=== PATIENT | male | born 1960 | race Caucasian/White ===

== ENCOUNTER 2020-08-25 15:18 | Emergency (ER) | payer OTHER ==
--- NOTE | 2020-08-25 15:31 | EDM.PDOC ---
ED HPI GENERAL MEDICAL PROBLEM - General Chief Complaint: Cardiovascular Problem Stated Complaint: CHEST PAIN X2 Time Seen by Provider: 08/25/20 15:30 - History of Present Illness INITIAL COMMENTS - FREE TEXT/NARRATIVE: 59-year-old male presents the emergency room with chest pain. This pain started 2 days ago. It is worse at night and he describes it as a burning pain adjacent to his scapula on the left side. Today he noticed the pain was extending towards the front of his chest and went to under his nipple. He describes this as a sharp stabbing pain. He has no prior history of coronary artery disease. However he is taking a statin because he has a strong family history of heart attacks and stroke. His father had and ultimately succumbed to heart disease at age 75 he has had some brothers that have had strokes. Patient is currently treated for hypothyroidism and is taking the atorvastatin 10 mg a day more for preventative measures not treated for hypertension no history or suggestion of diabetes in the past. The patient does smoke very lightly may be a pack a month, he is advised in no uncertain terms to quit. - Related Data Allergies Allergy/AdvReac Type Severity Reaction Status Date / Time No Known Allergies Allergy Verified 08/25/20 15:30 Home Meds: Home Meds Levothyroxine 125 mcg PO DAILY 08/25/20 [History] atorvaSTATin [Lipitor] 10 mg PO DAILY 08/25/20 [History] valACYclovir HCl [valACYclovir] 1,000 mg PO TID #21 tablet 08/25/20 [Rx] ED ROS GENERAL - Review of Systems Review Of Systems: See Below Constitutional: Reports: No Symptoms. Denies: Fever, Chills HEENT: Reports: No Symptoms Respiratory: Reports: No Symptoms Cardiovascular: Reports: Chest Pain. Denies: No Symptoms, Blood Pressure Problem, Dyspnea on Exertion, Edema, Lightheadedness Endocrine: Reports: No Symptoms GI/Abdominal: Reports: No Symptoms. Denies: Abdominal Pain, Anorexia, Constipation, Diarrhea, Nausea, Vomiting : Reports: No Symptoms Musculoskeletal: Reports: Other (Scapular pain on the left side) Skin: Reports: No Symptoms ED EXAM, GENERAL - Physical Exam Exam: See Below Exam Limited By: No Limitations General Appearance: Alert, No Apparent Distress Head: Atraumatic, Normocephalic Neck: Normal Inspection, Supple, Non-Tender, Full Range of Motion Respiratory/Chest: No Respiratory Distress, Lungs Clear, Normal Breath Sounds Cardiovascular: Regular Rate, Rhythm, No Edema, No Murmur GI/Abdominal: Normal Bowel Sounds, Soft, Non-Tender Back Exam: Normal Inspection, Other (Developing some redness along the left medial scapular margin no blistering as of yet). No: CVA Tenderness (L), CVA Tenderness (R) Extremities: Normal Inspection, No Pedal Edema Neurological: Alert, Oriented Lymphatic: No Adenopathy Course - Vital Signs Last Recorded V/S: Last Vital Signs Temp 36.1 C 08/25/20 15:26 Pulse 72 08/25/20 15:26 Resp 16 08/25/20 15:26 BP 159/100 H 08/25/20 15:26 Pulse Ox 95 08/25/20 15:26 - Orders/Labs/Meds Orders: Active Orders 24 hr Category Date Time Status EKG 12 Lead [EKG Documentation Completion] [RC] STAT Care 08/25/20 15:26 Active Sodium Chloride 0.9% [Normal Saline] 100 ml Med 08/25/20 17:45 Active IV ASDIRECTED Sodium Chloride 0.9% [Saline Flush] Med 08/25/20 17:45 Active 10 ml FLUSH ASDIRECTED Medication Orders Sodium Chloride (Normal Saline) 100 mls @ 60 mls/hr IV ASDIRECTED [facility] Last Admin: 08/25/20 17:54 Dose: 60 mls/hr Documented by: AXEL Sodium Chloride (Saline Flush) 10 ml FLUSH ASDIRECTED [facility] Last Admin: 08/25/20 17:54 Dose: 10 ml Documented by: [email or web address] Labs: Laboratory Tests 08/25/20 08/25/20 08/25/20 Range/Units 15:56 15:56 15:56 WBC 8.80 (4.23-9.07) K/mm3 RBC 4.94 (4.63-6.08) M/mm3 Hgb 15.1 (13.7-17.5) gm/dl Hct 45.0 (40.1-51.0) % MCV 91.1 (79.0-92.2) fl MCH 30.6 (25.7-32.2) pg MCHC 33.6 (32.2-35.5) g/dl RDW Std Deviation 47.5 H (35.1-43.9) fL Plt Count 246 (163-337) K/mm3 MPV 9.5 (9.4-12.3) fl Neut % (Auto) 52.9 (34.0-67.9) % Lymph % (Auto) 32.8 (21.8-53.1) % [place] % (Auto) 11.3 (5.3-12.2) % Eos % (Auto) 2.6 (0.8-7.0) Baso % (Auto) 0.2 (0.1-1.2) % Neut # (Auto) 4.65 (1.78-5.38) K/mm3 Lymph # (Auto) 2.89 (1.32-3.57) K/mm3 [place] # (Auto) 0.99 H (0.30-0.82) K/mm3 Eos # (Auto) 0.23 (0.04-0.54) K/mm3 Baso # (Auto) 0.02 (0.01-0.08) K/mm3 D-Dimer, Quantitative 1.25 H (0.19-0.50) mg/L Sodium 141 (136-145) mEq/L Potassium 3.8 (3.5-5.1) mEq/L Chloride 103 (98-107) mEq/L Carbon Dioxide 26 (21-32) mEq/L Anion Gap 15.8 H (5-15) BUN 16 (7-18) mg/dL Creatinine 1.1 (0.7-1.3) mg/dL Est Cr Clr Drug Dosing 81.32 mL/min Estimated GFR (MDRD) > 60 (>60) mL/min BUN/Creatinine Ratio 14.5 (14-18) Glucose 109 H (74-106) mg/dL Calcium 9.0 (8.5-10.1) mg/dL Total Bilirubin 0.9 (0.2-1.0) mg/dL AST 21 (15-37) U/L ALT 40 (16-63) U/L Alkaline Phosphatase 49 (46-116) U/L Troponin I < 0.017 (0.00-0.056) ng/mL Total Protein 7.0 (6.4-8.2) g/dl Albumin 3.8 (3.4-5.0) g/dl Globulin 3.2 gm/dL Albumin/Globulin Ratio 1.2 (1-2) Meds: Medications Generic Name Dose Route Start Last Admin Trade Name Shin PRN Reason Stop Dose Admin Sodium Chloride 100 mls @ 60 mls/hr 08/25/20 17:45 08/25/20 17:54 Normal Saline IV 60 mls/hr ASDIRECTED GAGE Administration Sodium Chloride 10 ml 08/25/20 17:45 08/25/20 17:54 Saline Flush FLUSH 10 ml ASDIRECTED GAGE Administration Discontinued Medications Generic Name Dose Route Start Last Admin Trade Name Shin PRN Reason Stop Dose Admin Aspirin 324 mg 08/25/20 15:46 08/25/20 17:09 Aspirin PO 08/25/20 15:47 324 mg ONETIME ONE Administration Sodium Chloride 1,000 mls @ 999 mls/hr 08/25/20 16:51 08/25/20 17:02 Normal Saline IV 08/25/20 17:51 999 mls/hr ONETIME ONE Administration Iopamidol 100 ml 08/25/20 17:41 08/25/20 17:54 Isovue-370 (76%) IVPUSH 08/25/20 17:42 100 ml ONETIME ONE Administration Valacyclovir HCl 1,000 mg 08/25/20 16:24 08/25/20 17:09 Valtrex PO 08/25/20 16:25 1,000 mg ONETIME ONE Administration - Re-Assessments/Exams Free Text/Narrative Re-Assessment/Exam: 08/25/20 18:25 Troponin look great unfortunately his D-dimer was a little elevated. With the uncertainty of his chest discomfort went ahead discussed the pros and cons of getting a CTA and the patient would to pursue with this this was done which showed no evidence of the PE no other acute changes noted. There were some calcifications noted in the coronary arteries. The patient has a heart score of 2 one-point for his age one-point for his risk factors. The patient will follow up with his regular physician this next week and discussed the pros and cons of provocative stress testing however the patient does share with me that when the weather is better he usually jogs a couple miles a day and does not have significant discomfort from this however he smokes about a pack of cigarettes a month at this point I strongly urged him to quit. With regards to his chest pain he has a heart score of 2 discussed the pros and cons of this discussed outpatient management versus in hospital observation and the patient would like to be discharged. He will continue his daily aspirin use Tylenol for discomfort. With the burning nature of the rash that he is developing on his back the possibility of shingles is there with a low risk of side effects of the shingles medication the patient will be started on Valtrex 1000 mg 3 times a day just in case this is an early developing shingles. Departure - Departure Time of Disposition: 18:27 Disposition: Home, Self-Care 01 Clinical Impression: Chest pain - Discharge Information Referrals: Randolph Coleman MD [Primary Care Provider] - Forms: ED Department Discharge Additional Instructions: Return to the emergency room with any questions problems or worsening symptoms. Take the Valtrex, this is an antishingles medication, 3 times daily until all gone. There is a chance this could be an early shingles outbreak, however, this is not certain. Quit smoking! Continue daily aspirin and atorvastatin statin therapy. Follow-up with Dr. Troncoso later this week for follow-up. Discussed the need risk and benefits of provocative stress testing. Quit smoking! Sepsis Event Note (ED) - Evaluation Sepsis Screening Result: No Definite Risk - Focused Exam Vital Signs: Vital Signs Temp Pulse Resp BP Pulse Ox 08/25/20 15:26 36.1 C 72 16 159/100 H 95 - My Orders Last 24 Hours: My Active Orders 08/25/20 15:26 EKG 12 Lead [EKG Documentation Completion] [RC] STAT 08/25/20 17:45 Sodium Chloride 0.9% [Normal Saline] 100 ml IV ASDIRECTED Sodium Chloride 0.9% [Saline Flush] 10 ml FLUSH ASDIRECTED - Assessment/Plan Last 24 Hours: My Active Orders 08/25/20 15:26 EKG 12 Lead [EKG Documentation Completion] [RC] STAT 08/25/20 17:45 Sodium Chloride 0.9% [Normal Saline] 100 ml IV ASDIRECTED Sodium Chloride 0.9% [Saline Flush] 10 ml FLUSH ASDIRECTED
[2020-08-25] MEDS ORDERED: Aspirin 81 MG Tab.Chew PO ONE (15:46)
--- NOTE | 2020-08-25 16:11 | CR ---
Chest: Portable view of the chest was obtained. Comparison: No previous chest imaging is available. Heart size and mediastinum are normal. Lungs are clear with no acute parenchymal change. No acute osseous abnormality is appreciated. Impression: 1. Nothing acute is appreciated on portable chest x-ray. Diagnostic code #1
[2020-08-25] MEDS ORDERED: valACYclovir 1,000 MG Tab PO ONE (16:24)
[2020-08-25] MEDS ORDERED: Sodium Chloride 0.9% 1,000 ML IV ONE (16:51)
[2020-08-25] MEDS ORDERED: Iopamidol 755 Mg/ML 100 ML Bottle IVPUSH ONE (17:41)
[2020-08-25] MEDS ORDERED: Sodium Chloride 0.9% 100 ML IV SCH (17:45)
[2020-08-25] MEDS ORDERED: Sodium Chloride 0.9% 10 ML Syringe FLUSH SCH (17:45)
--- NOTE | 2020-08-25 18:06 | CT ---
CT chest Technique: Multiple axial sections of the chest were obtained. Intravenous contrast was utilized. Study has been performed as a pulmonary angiogram protocol. Comparison: No previous available. Findings: Pulmonary arteries show no filling defects to indicate pulmonary embolism. Thoracic aorta shows no aneurysm. Mediastinum and hilar regions show no adenopathy. Coronary artery calcification appears to be present. No pericardial thickening is seen. Small portion of the visualized upper abdominal structures show no discrete abnormality. Very slight dependent atelectasis is seen within both posterior lungs. Lungs show no acute parenchymal change. No pleural effusions are appreciated. Bone window settings were reviewed. Scattered degenerative change is noted throughout the spine. No acute osseous abnormality is definitely appreciated. Impression: 1. No findings of pulmonary embolism. 2. Other findings as noted above. Nothing acute is otherwise seen. Diagnostic code #2
== END 2020-08-25 18:40 | disposition home or self-care (01) ==
LOC: JD.ED 15:18
DX: R07.9 Chest pain, unspecified (principal); F17.200 Nicotine dependence, unspecified, uncomplicated
CPT/HCPCS: 36415; 71045; 71275; 80053; 84484; 85025; 85379; 93005; 99285; A9270; J7030; Q9967; 93010; 99284